=== PATIENT | male | born 1960 | race Asian ===

== ENCOUNTER 2020-02-20 16:14 | Emergency (ER) | payer OTHER ==
[~2020-02-20] VITALS: Ht 172.7 cm; Wt 72.6 kg
[2020-02-20 16:21] VITALS: Ht 172.7 cm; Wt 72.6 kg
[2020-02-20 16:50] LABS: BASOPHIL % 0.4 % (0-2); PLATELET COUNT 222 x10^3mcL (130-400); RED CELL DISTRIBUTION WIDTH 13.2 % (11.5-14.5)
[2020-02-20 17:08] LABS: CALCIUM 8.9 mg/dL (8.5-10.1); CHLORIDE SERUM 105 mmol/L (98-107); GFR1 > 60 mL/min; GLUCOSE SERUM 133 mg/dL (74-106); POTASSIUM SERUM 3.6 mmol/L (3.5-5.1); SODIUM SERUM 140 mmol/L (136-145)
[2020-02-20 18:06] VITALS: BP 124/43
== END 2020-02-20 18:06 | disposition home or self-care (01) ==
LOC: ED 16:14
PROVIDERS: Emergency Medicine
DX: R10.13 Epigastric pain (principal); Z88.6 Allergy status to analgesic agent; Z86.19 Personal history of other infectious and parasitic diseases
CPT/HCPCS: 85378; Q0092

== ENCOUNTER 2020-02-21 06:59 | Emergency (ER) | payer OTHER ==
[~2020-02-21] VITALS: Ht 177.8 cm; Wt 73.9 kg
[2020-02-21 07:17] VITALS: Ht 177.8 cm; Wt 73.9 kg
[2020-02-21 08:26] LABS: CALCIUM 9.1 mg/dL (8.5-10.1); CARBON DIOXIDE 26.4 mmol/L (21-32); CHLORIDE SERUM 105 mmol/L (98-107); GFR1 > 60 mL/min; GLUCOSE SERUM 103 mg/dL (74-106); POTASSIUM SERUM 3.6 mmol/L (3.5-5.1); SODIUM SERUM 141 mmol/L (136-145)
[2020-02-21 08:31] LABS: ALBUMIN 4.1 g/dL (3.4-5.0); ALKALINE PHOSPHATASE 71 U/L (46-116); ALT/SGPT 29 U/L (16-63); AST/SGOT 18 U/L (15-37); BILIRUBIN TOTAL 0.94 mg/dL (0.20-1.00); LIPASE 94 IU/L (73-393); TOTAL PROTEIN, SERUM 7.4 g/dL (6.4-8.2)
[2020-02-21 09:17] LABS: BASOPHIL % 0.3 % (0-2); PLATELET COUNT 223 x10^3mcL (130-400); RED CELL DISTRIBUTION WIDTH 13.4 % (11.5-14.5)
[2020-02-21 12:13] VITALS: BP 122/69
== END 2020-02-21 12:13 | disposition home or self-care (01) ==
LOC: ED 06:59
PROVIDERS: Emergency Medicine
DX: K80.20 Calculus of gallbladder without cholecystitis without obstruction (principal); Z88.6 Allergy status to analgesic agent
CPT/HCPCS: J2405; J7030; Q0092

== ENCOUNTER 2020-02-21 14:12 | Inpatient (IN) | payer OTHER ==
[~2020-02-21] VITALS: Ht 177.8 cm; Wt 73.0 kg
[2020-02-21 14:26] VITALS: Ht 177.8 cm; Wt 73.0 kg
[2020-02-21 18:05] VITALS: BP 131/77
[2020-02-21 20:35] VITALS: BP 132/74
[2020-02-22 05:05] VITALS: BP 119/67
[2020-02-22 07:33] LABS: BASOPHIL % 0.4 % (0-2); PLATELET COUNT 224 x10^3mcL (130-400); RED CELL DISTRIBUTION WIDTH 13.6 % (11.5-14.5)
[2020-02-22 07:37] LABS: CALCIUM 8.7 mg/dL (8.5-10.1); CARBON DIOXIDE 26.2 mmol/L (21-32); CHLORIDE SERUM 106 mmol/L (98-107); GFR1 > 60 mL/min; GLUCOSE SERUM 84 mg/dL (74-106); MAGNESIUM 2.3 mg/dL (1.8-2.4); POTASSIUM SERUM 3.9 mmol/L (3.5-5.1); SODIUM SERUM 141 mmol/L (136-145)
[2020-02-22 08:06] VITALS: BP 120/59
[2020-02-22 11:27] VITALS: BP 120/69
[2020-02-22 16:00] VITALS: BP 134/72
[2020-02-22 21:31] VITALS: BP 142/74
[2020-02-22 22:17] VITALS: BP 125/74
[2020-02-23 00:14] VITALS: BP 134/77
[2020-02-23 04:28] VITALS: BP 140/68
[2020-02-23 07:51] LABS: CALCIUM 8.8 mg/dL (8.5-10.1); CARBON DIOXIDE 28.3 mmol/L (21-32); CHLORIDE SERUM 105 mmol/L (98-107); CREATININE SERUM 0.9 mg/dL (0.7-1.3); GFR1 > 60 mL/min; GLUCOSE SERUM 85 mg/dL (74-106); MAGNESIUM 2.4 mg/dL (1.8-2.4); POTASSIUM SERUM 4.3 mmol/L (3.5-5.1); SODIUM SERUM 140 mmol/L (136-145)
[2020-02-23 09:18] LABS: BASOPHIL % 0.2 % (0-2); PLATELET COUNT 205 x10^3mcL (130-400); RED CELL DISTRIBUTION WIDTH 13.3 % (11.5-14.5)
[2020-02-23 12:33] VITALS: BP 114/66
[2020-02-23] MEDS ORDERED: PANTOPRAZOLE SO40 M1 PO (12:38)
[2020-02-23] MEDS ORDERED: METRONIDAZOLE500 M1 PO (12:38)
[2020-02-23] MEDS ORDERED: CEFUROXIME250 MG PO (12:39)
[2020-02-23 12:50] VITALS: BP 114/66
== END 2020-02-23 13:10 | disposition home or self-care (01) | DRG 254 ==
LOC: ED 14:12 → DU 17:01
PROVIDERS: ADMIT Hospitalist; ATTEND Hospitalist
DX: K65.4 Sclerosing mesenteritis (principal); K80.50 Calculus of bile duct without cholangitis or cholecystitis without obstruction; Z20.828 Contact with and (suspected) exposure to other viral communicable diseases; Z82.49 Family history of ischemic heart disease and other diseases of the circulatory system; F41.1 Generalized anxiety disorder
CPT/HCPCS: 78226; 90658; A9537; C9113; G0378; J0744; J1200; J2405; J3490; J7050